=== PATIENT | female | born 1990 | race Caucasian/White ===

== ENCOUNTER 2017-02-03 15:21 | Emergency (ER) | payer SELFPAY ==
[2017-02-03] MEDS ORDERED: NO MEDS (15:37)
[2017-02-03 16:07] LABS: BASO % 0.2 % (0-2); EOS % 1.1 % (0-7); EOSINOPHIL ABSOLUTE COUNT 0.1 tho/cmm (0.0-0.7); HCT-HEMATOCRIT 38.6 % (34.0-49.0); HGB-HEMOGLOBIN 13.4 gm/dl (12.0-15.5); IMMATURE GRANULOCYTES ABSOLUTE 0.01 tho/cmm (0-0.03); IMMATURE GRANULOCYTES PERCENT 0.1 % (0-0.3); LYMPH % 16.6 % (20-45); LYMPH ABSOLUTE COUNT 1.4 tho/cmm (0.8-4.5); MCH (MEAN CORPUSCULAR HGB) 29.3 pg (28.0-32.0); MCHC MEAN CORPUSCULAR HGB CONC 34.7 % (32.0-36.0); MCV (MEAN CELL VOLUME) 84.5 fl (82.0-96.0); MEAN PLATELET VOLUME 12.4 cmc (9.4-12.4); MONO % 6.5 % (0-12); MONOCYTE ABSOLUTE COUNT 0.5 tho/cmm (0.0-1.2); NEUTROPHIL ABSOLUTE COUNT 6.2 tho/cmm (1.6-8.0); NEUTROPHIL-AUTOMATED 6.2 tho/cmm (1.6-8.0); NEUTROPHILS % 75.5 % (40-80); PLATELET COUNT 152 tho/cmm (150-450); RED BLOOD COUNT 4.57 mil/cmm (4.00-5.20); RED CELL DISTRIBUTION WIDTH 12.7 % (12.4-16.4); WHITE BLOOD COUNT 8.2 tho/cmm (4.0-10.0)
[2017-02-03 16:20] LABS: PREGNANCY-SERUM NEGATIVE (NEGATIVE)
[2017-02-03 16:23] LABS: URINE BILIRUBIN NEGATIVE (NEG); URINE BLOOD NEGATIVE (NEG); URINE GLUCOSE (UA) NEGATIVE (NEG); URINE KETONE NEGATIVE (NEG); URINE LEUKOCYTE ESTERASE NEGATIVE (NEG); URINE NITRITE NEGATIVE (NEG); URINE PROTEIN NEGATIVE (NEG); URINE SPECIFIC GRAVITY 1.005 (1.003-1.030)
[2017-02-03 16:23] LABS: ALB/GLOB RATIO 1.4 (0.8-2.0); ALBUMIN 4.1 g/dl (3.5-5.0); ALKALINE PHOSPHATASE 63 U/L (33-138); ALT/SGPT 24 U/L (12-78); ANION GAP 13 mmol/L (0-20); AST/SGOT 19 U/L (10-40); BILIRUBIN,TOTAL 2.2 mg/dl (0-1.5); BLOOD UREA NITROGEN 15 mg/dl (6-24); CALCIUM 9.5 mg/dl (8.5-10.5); CARBON DIOXIDE-VENOUS 23 mmol/L (22-32); CHLORIDE 109 mmol/l (96-110); CREATININE 1.07 mg/dl (0.50-1.10); GLUCOSE 99 mg/dL (70-110); LIPASE 88 U/L (73-393); POTASSIUM 3.5 mmol/L (3.7-5.1); SODIUM 141 mmol/L (135-145); eGFR VALUE FOR BLACK 83 mL/Min
[2017-02-03 16:27] LABS: URINE APPEARANCE HAZY; URINE COLOR YELLOW
[2017-02-03 16:39] LABS: URINE WBC 0 /[HPF] (0-5)
[2017-02-03 16:40] LABS: URINE BACTERIA 1+
[2017-02-03] MEDS ORDERED: NORCO 5-325 TA1 EACH PO (17:56)
== END 2017-02-03 18:24 ==
LOC: EDMED 15:21
PROVIDERS: Emergency Medicine
DX: N83.201 Unspecified ovarian cyst, right side (principal); D21.9 Benign neoplasm of connective and other soft tissue, unspecified; F17.200 Nicotine dependence, unspecified, uncomplicated
CPT/HCPCS: J1170; J2405; J7030